=== PATIENT | male | born 1980 | race Caucasian/White ===

== ENCOUNTER 2024-04-21 10:40 | Emergency (ER) | payer BC, SELFPAY ==
--- NOTE | 2024-04-21 10:48 | ED.GENADULT ---
HPI - General Adult General Chief complaint: Upper Respiratory Infection Stated complaint: Cold symptoms Time Seen by Provider: 04/21/24 10:49 Source: patient Mode of arrival: ambulatory Limitations: no limitations History of Present Illness HPI narrative: 3-year-old male patient presents to the [facility] with complaints of cold symptoms for the past week. Patient states he has had a cough, runny nose with green mucus. Patient states his throat has been sore. Patient states he was running a low-grade fever the 1st day or 2 but that has resolved. Patient states he feels like he can not really take a deep breath and has a dry cough. Patient states he does get sinus infections frequently and has been taking [id number] Zyrtec, Claritin, Mucinex and using his Neti pot to help with his sinuses. Related Data Allergies Allergy/AdvReac Type Severity Reaction Status Date / Time No Known Allergies Allergy Verified 04/21/24 11:07 Review of Systems Review of Systems: CONSTITUTIONAL: Denies fever, chills, or sweats. EYES: Denies visual changes, redness, or discharge. ENT: Positive rhinorrhea, congestion, sore throat, positive bilateral otalgia. CARDIOVASCULAR: Denies chest pain, palpitations, or edema. RESPIRATORY: positive cough , denies dyspnea. GASTROINTESTINAL: Denies abdominal pain, nausea, vomiting, or diarrhea. GENITOURINARY: Denies dysuria or hematuria. SKIN: Denies rash or itching. MUSCULOSKELETAL: Denies back pain, joint pain, or myalgia. NEUROLOGIC: Denies headache, numbness, or weakness. PSYCHIATRIC: Denies anxiety or depression. [facility] Past Medical History Medical History (Updated 04/21/24 @ 11:46 by MIRIAM Mistry) No significant past medical history Comments At the time of my signature I agree with nursing past medical history, surgical, social, and family history. There is no relevant family history pertinent to the presenting complaint. Exam Narrative: GENERAL: Well-appearing, well-nourished, and in no acute distress. HEAD: Normocephalic, atraumatic. EYES: PERRLA and EOMI. ENT: Nares clear, no rhinorrhea or epistaxis. Mucous membranes moist. posterior pharynx with erythema noted no tonsillar enlargement, no exudates or lesions present. NECK: Supple. No lymphadenopathy CHEST: Clear to auscultation. No respiratory distress. Patient able talk clear complete sentences. HEART: Regular rate and rhythm. No murmur heard. Normal peripheral pulses. ABDOMEN: Soft, nontender, nondistended, normal active bowel sounds. EXTREMITIES: Normal range of motion. No edema. SKIN: Warm, dry, no rash. NEURO: No focal deficits. Alert and oriented x3. Course Course Level of Care: Express Care Visit Vital Signs Vital signs: Vital Signs Temperature 36.3 C L 04/21/24 11:07 Pulse Rate 65 04/21/24 11:07 Respiratory Rate 18 04/21/24 11:07 Blood Pressure 130/77 04/21/24 11:07 Pulse Oximetry 97 04/21/24 11:07 Oxygen Delivery Room Air 04/21/24 11:07 Temperature 36.3 C L 04/21/24 11:07 Pulse Rate 65 04/21/24 11:07 Respiratory Rate 18 04/21/24 11:07 Blood Pressure 130/77 04/21/24 11:07 Pulse Oximetry 97 04/21/24 11:07 Oxygen Delivery Room Air 04/21/24 11:07 vital signs reviewed Medical Decision Making [facility] Narrative Medical decision making narrative: Plan care patient is to swab for strep throat to rule out any need of antibiotics. Discussed with patient that if this is negative most likely will discharge home with a course of steroids for sinusitis and Tessalon Perles and inhaler for the cough. Discussed with patient this is most likely viral and antibiotics are not needed at this time however if he completes the regimen still has symptoms highly recommend for re-evaluation of possible antibiotics. Patient states he normally gets antibiotics when his symptoms occurred discussed with patient that all the medical evidence show that this is most likely viral and
[2024-04-21 11:07] VITALS: BP 130/77; PULSE 65; RESP 18; TEMP 36.3; O2SAT 97
== END 2024-04-21 11:57 | disposition home or self-care (01) ==
PROVIDERS: Emergency Provider Nurse Practitioner Family
DX: J06.9 Acute upper respiratory infection, unspecified (principal); J32.9 Chronic sinusitis, unspecified
CPT/HCPCS: 87081; 87880; 99213; G0463

== ENCOUNTER 2024-06-13 00:28 | Day surgery (SDC) | payer BC, SELFPAY ==
[2024-06-06 16:42] VITALS: BMI 31.6
--- NOTE | 2024-06-06 16:54 | SUR.PREOP ---
Addendum entered by Indu Mckeon RN 06/07/24 12:01: Pt notified no food after midnight and no liquids after 0245. Original Note: Report to the Outpatient Waiting Room, entrance under the green pavilion located off [facility], at time 0845 on date 06/13/2024. Planned Procedure Time: 10:45 a.m. Time changes happen often and if your time is changed the preop area will call you the afternoon before. - You and your visitor will be asked to self-screen and do not enter if you have any COVID symptoms. - A mask is optional within the hospital at this time. Patients may have clear liquids (water, carbonated beverages, clear teas, apple juice) until 3 hours prior to surgery with a maximum of 20 ounces. - No food from midnight until time of surgery - Infants may have breast milk until 4 hours before surgery, formula 6 hours prior to surgery. - Children will be allowed to drink immediately following surgery. If applicable, please bring a bottle or sippy cup to assist with drinking. Juice, water, soda, and popsicles are readily available. For infants on formula, please bring formula the day of surgery. Pacifiers are allowed. Take the following medications with a SIP of water the morning of surgery: N/A DO NOT STOP ANY OF YOUR OTHER PRESCRIPTION MEDICATIONS PRIOR TO SURGERY ?EXCEPT THE FOLLOWING Medications to discontinue per physician N/A Date to take last dose N/A Please no make-up, nail yi, hairspray, perfume, deodorant, or body powder the day of surgery. No jewelry (including any body piercings) or valuables the day of surgery, leave them at home. Please take a shower or bath the night before, or the morning of, surgery with an antibacterial soap. Wear comfortable, loose fitting clothing. Children are encouraged to wear pajamas. - Jewelry must be removed prior to entering the operating room. Rings and piercings that are not removed may be cut off. - The hospital will not accept responsibility for valuables. - Please leave all valuables, including medications, at home the day of surgery. If you are going home after surgery, a licensed wrecker driver must drive you home. - NO public transportation without another adult if you receive anesthesia. - We recommend that an adult stay with you for 24 hours following discharge. - We also recommend that you do not drive, make important decision, drink alcoholic beverages, or take any drugs that were not prescribed by your health care provider for at least 24 hours after your discharge time. For Pediatric surgeries, we recommend two adults accompany the child home. Follow any additional instructions given to you from your surgeon. If you or anyone in your household have experienced Covid symptoms in the past week, please notify your surgeon or the nurse liaison at the phone number below for possible testing. Telephone instructions given to Mike Reed and asked if any additional questions and then verbalized understanding. Patient advised to call surgeon office or pre surgery nurse liaison [phone] if any additional questions.
[2024-06-13] VITALS (7 sets, daily range): BP systolic 108–119; BP diastolic 54–78; PULSE 50–74; RESP 14–20; TEMP 36.2; O2SAT 94–98
--- NOTE | 2024-06-13 06:52 | W.PM.PROC2 ---
Procedure Note - Detailed Date of Procedure 06/13/24 Pre-op Diagnosis recurrent ganglion right wrist Post-op Diagnosis Same Procedure Performed excision recurrent right volar wrist ganglion Surgeon Tanisha Phillips MD Human Resources Coordinator doretha thorpe pa-c Anesthesia MAC Description of Procedure INFORMED CONSENT: The patient was seen and examined and marked in the pre-op area.? The patient signed the consent form. PROCEDURE IN DETAIL:The patient taken back to OR on the stretcher in supine position. Time out performed with anesthesia, surgeon and staff agreeing on patient's name site and surgery to be performed SCDs were placed on the lower extremities and inflated. A tourniquet was placed on {right} upper extremity and antibiotics given IV After anesthesia administered sedation I injected {6}cc 1%lido with epi and 0.5% marcaine plain at the operative site The?{right upper extremity}?was prepped and draped in sterile fashion the??{right upper extremity} was? exsanguinated proximal to the mass with Esmarch bandage and tourniquet inflated to 250mmHg I proceeded with making a longitudinal incision over the right volar wrist mass through skin and dermis with a 15 blade scalpel. Littler scissors were used to spread through subcutaneous tissue down to the mass. I proceeded with circumferential dissection of the mass down to the volar wrist capsule noting the mass was partially entrapped in old scar tissue and adherent to the radial artery. I carefully identified and dissected the radial artery off the mass and identified the stalk coming from radial to the artery at the wrist capsule. The cyst was transected with bipolar cautery at the level of the wrist capsule. I irrigated with normal saline. I repaired the capsular defect with 4-0 Vicryl suture. Skin was closed with 4-0 Monocryl for dermis and subcuticular after letting the tourniquet down noting the radial artery was intact. A dressing of Dermabond, 4x4, phuc, and a volar splint was applied for patient safety, security, and comfort and secured with an corinna bandage after the tourniquet was let down noting the hand was warm and well perfused. The patient was then awaken from anesthesia and transferred to the recovery room in stable condition.? Complications - none EBL- 0cc Disposition - home in stable conditions Doretha Thorpe PA-C was essential for positioning, retraction, closure and dressing placement [facility] Billing Surgery - Charge Forward: Surgery Billing ([id number] for doretha)
--- NOTE | 2024-06-13 06:52 | PM.HPGS ---
History of Present Illness History of Present Illness Consent: Chief complaint: ganglion right wrist Narrative: Patient seen and examined in pre-operative holding area. No interval change in medical history or symptoms. Patient recalls previous discussion of benefits and alternatives to procedure. Continues to desire to proceed with right volar wrist ganglion cyst excision. Reviewed procedure, post-op expectations and risks including but not limited to bleeding, infection, injury to tendon/nerve/vessel, recurrence, decreased hand function, stiffness, RSD, no change or worsening of symptoms. I discussed the possible use of assistants and their participation in the case. Patient stated understanding and signed the consent form wishing to proceed. Review of Systems Review of Systems: All systems reviewed & are unremarkable except as noted in HPI and below PMFSH Past Medical History Medical History No significant past medical history Social History Social History Smoking status: Never smoker Living arrangements: with family Meds Home Medications and Allergies Home Medications Medication Instructions Recorded Confirmed Type No Home Medications 06/06/24 06/13/24 History Allergies Allergy/AdvReac Type Severity Reaction Status Date / Time No Known Allergies Allergy Verified 06/13/24 09:10 Exam Narrative: unchanged Assessment and Plan Assessment and plan (1) Ganglion cyst of volar aspect of right wrist: Code(s): M67.431 - Ganglion, right wrist Status: Acute Assessment and Plan: cont as above
[2024-06-13] MEDS: LACTATED RINGERS 1,000 ML 30 ML IV CONT (09:30)
--- NOTE | 2024-06-13 09:45 | P.PNAN_ITS ---
Anes - Initial Pre Proc Eval Procedure: Operation Date: 06/13/24 10:45 Proposed Procedures p Right Volar Wrist Ganglion Excision - Tanisha Phillips MD Date/Time: 06/13/24 09:45 Surgeon: aTnisha Phillips MD Pre Op Diagnosis: ganglion right wrist Patient Data Age: 43 Gender: M Height: 1.85 m Weight: 108.66 kg Allergies Allergy/AdvReac Type Severity Reaction Status Date / Time No Known Allergies Allergy Verified 06/13/24 09:10 Home Medications Medication Instructions Recorded Confirmed Type No Home Medications 06/06/24 06/13/24 History Patient hx anesthesia problems: none Family hx anesthesia problems: none Results Review: All pre-operative results and documents have been reviewed as part of the pre- operative evaluation. [facility], [facility] Past Medical History Medical History No significant past medical history Social History Social History Smoking status: Never smoker Living arrangements: with family Anes - Eval Final PreProcedure Day of Procedure 06/13/24 09:45 Patient weight: obese Heart: regular rate and rhythm Lungs: clear to auscultation and normal air movement Airway: Mallampati scale class II Neurological: alert and oriented Last oral intake: >/= 8 hours ASA classification: III Emergent: no Anesthetic plan: proceed Anesthesia type and monitoring: general GIVS and standard monitoring Results Review: All pre-operative results and documents have been reviewed as part of the pre- operative evaluation. Informed Consent: The patient's anesthetic plan and its attendant risks and benefits were discussed with the patient/family/POA. Questions were solicited and answers provided to the satisfaction of the patient/family/POA.
[2024-06-13] MEDS: ceFAZolin 2 GM/D5W 50 ML 2 GM/50 ML BAG IVPB (10:17)
[2024-06-13] MEDS: BUPivacaine HCL 0.5% PF 30 ML VIAL INFILTRATE (10:18)
[2024-06-13] MEDS: LIDO 1%/EPINEPHRINE 1:100,000 50 ML VIAL 10 ML INFILTRATE (10:24)
[2024-06-13] MEDS: oxyCODONE HCL (*CRX) 5 MG TAB IR PO (11:40)
--- NOTE | 2024-06-13 15:59 | SUR.PHASEII ---
1200: patient meets criteria to dc to home. Family states they do not want him to DC until his heart rate is higher. VSS, with hr >50bpm. Patient remains in outpatient recovery. Outpatient discharge instructions given to patient and family and signed.
== END 2024-06-13 13:09 | disposition home or self-care (01) ==
PROVIDERS: Visit Provider Plastic Surgery
PROC: (CPT 25112; principal; 2024-06-13 10:45)
DX: M67.431 Ganglion, right wrist (principal); E66.9 Obesity, unspecified; Z68.30 Body mass index [BMI] 30.0-30.9, adult
CPT/HCPCS: 25112; 88305; A9270; J0690; J1100; J2250; J2405; J2704; J3010; J7120